=== PATIENT | female | born 1985 | race African-American/Black ===

== ENCOUNTER 2016-09-25 11:47 | Emergency (ER) | payer OTHER ==
[~2016-09-25] VITALS: Ht 165.1 cm; Wt 159.1 kg
[2016-09-25 11:51] VITALS: BP 148/100; PULSE 113; RESP 18; O2SAT 98
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
[2016-09-25] MEDS ORDERED: Ketorolac 30 mg/mL 2 mL Inj IM ONE (13:05)
[2016-09-25] MEDS ORDERED: MELO-253 PO (13:22)
--- NOTE | 2016-09-25 13:31 | DRSVH ---
PROCEDURE: X-RAY LEFT ANKLE, MINIMUM THREE VIEWS ([id number]) INDICATIONS: trauma TECHNIQUE: 3 views of the ankle were acquired. COMPARISON: None. FINDINGS: Bones: No fractures or dislocations. Ankle mortise is normally aligned. No suspicious bony lesions . Soft tissues: No tibiotalar joint effusion. Achilles tendon appears normal. Disease soft tissue swe lling. IMPRESSION: No displaced fracture. Diffuse soft tissue swelling. If there is continued pain, follow up exam or additional imaging such as MRI or CT could be performed for further assessment. Dictated by: Yony Bullock [facility] Interpreted: Judson Boswell MD on 09/25/2016 at 13:30 Transcribed by: JOSEFINA on 09/25/2016 at 13:30 Approved by: Judson Boswell M.D. on 09/25/2016 at 14:53
--- NOTE | 2016-09-25 13:33 | DRSVH ---
PROCEDURE: X-RAY LEFT TIBIA/FIBULA, TWO VIEWS ([id number]) INDICATIONS: trauma TECHNIQUE: 2 views of the tibia and fibula were acquired. COMPARISON: None. FINDINGS: Bones: No fractures or dislocations. No suspicious bony lesions. Soft tissues: No suspicious soft tissue calcifications or masses. IMPRESSION: No displaced fracture seen. If there is continued pain, followup exam or additional lazarus ging such as MRI or CT could be performed for further assessment. Dictated by: Yony Bullock [facility] Interpreted: Judson Boswell MD on 09/25/2016 at 13:33 Transcribed by: JOSEFINA on 09/25/2016 at 13:33 Approved by: Judson Boswell M.D. on 09/25/2016 at 14:56
[2016-09-25 14:05] VITALS: BP 152/98; PULSE 102; RESP 18; O2SAT 98
== END 2016-09-25 14:06 | disposition home or self-care (01) ==
LOC: SED 11:47
DX: S93.402A Sprain of unspecified ligament of left ankle, initial encounter (principal); E66.01 Morbid (severe) obesity due to excess calories; W01.0XXA Fall on same level from slipping, tripping and stumbling without subsequent striking against object, initial encounter; Y93.01 Activity, walking, marching and hiking; Y99.8 Other external cause status; Y92.89 Other specified places as the place of occurrence of the external cause; Z87.828 Personal history of other (healed) physical injury and trauma
CPT/HCPCS: 73590; 73610; 96372; 99284; J1200; J1885